=== PATIENT | male | born 1970 | race Caucasian/White ===

== ENCOUNTER 2018-01-07 10:01 | Outpatient (RCR) | payer OTHER, SELFPAY | END 2018-01-07 11:00 | disposition home or self-care (01) | LOC: SP 10:01 | PROVIDERS: Family Provider Family Medicine; PCP Family Medicine; Visit Provider Otolaryngology | DX: R13.11 Dysphagia, oral phase (principal); R47.1 Dysarthria and anarthria ==

== ENCOUNTER → 2018-01-15 12:58 | Outpatient (CLI) | payer OTHER, SELFPAY ==
--- NOTE | 2018-01-15 13:00 | SP.MBSS_ITS ---
PRIMARY / SECONDARY DIAGNOSIS: dysphagia (R13.11) REFERRING PHYSICIAN: Dr. Roni Sanchez MD CURRENT DIET: regular textures, thin liquids DENTITION: WFL MENTAL STATUS: WNL RESPIRATORY STATUS: O2 via room air PREVIOUS MODIFIED BARIUM SWALLOW STUDY: none REASON FOR REFERRAL: Patient is a 47 year old male referred for a modified barium swallow (MBS) study to objectively assess the Patients oropharyngeal swallow function under fluoroscopy secondary to the diagnosis of left lingual paralysis status post right rotator cuff surgery performed on 11/25/2017. Patient reporting persistent dysphagia primarily during the oral phase that progresses during intake, initial severity of dysphagia leading to the Patient requiring right sided bolus manipulation due to discoordination and occasional biting of the left lingual blade (initially occurring 6-8 times over 2 week period post op, though has improved), initially requiring a napkin to cover the mouth due to consistent anterior bolus loss (has recently improved), initial odynophagia somewhat improved, denies trismus, mild dysarthria occurring after approximately 20-30 minutes of conversation, with the Patient reporting tightness / cramping of the lingual structure, no impact on speech intelligibility. Patient reports a 20lb weight loss over the past month, intermittent shortness of breath and mild post anesthesia cognitive decline ( primarily consisting of bradyphrenia), reports new onset snoring / possible sleep apnea. Patient further presenting to [facility], was treated for suspected cerebrovascular accident and transferred to [facility], with subsequent workup negative; referred to sneller hand with report detailing left hypoglossal nerve paresis / neuropraxia occurring postoperatively during repair of a right rotator cuff with preoperative block. 12/09/2017 flexible fiberoptic laryngoscopy revealed mucosa intact with no sign of lesion, mass, or compression; edema of the posterior commissure mucosa present. MEDICAL HISTORY: Thoracic injury of the back, status post right rotator cuff surgical repair, deviated septum with nasal polyps, STUDY FINDINGS: Patient participated in a Modified Barium Swallow (MBS) study on 01/15/2018. Dr. Morales was the radiologist present for this evaluation. This study was recorded in the lateral view and images were sent to PACs for storage. The following consistencies were presented to this patient for analysis of oropharyngeal swallow function: thin liquids, pudding, and a regular textured, Terrie Doone cookie. Results of the MBS are as follows: PENETRATION / ASPIRATION SCALE ([place]): 1 = does not enter airway 2 = enters airway/above vocal folds/ejected 3 = enters airway/above vocal folds/not ejected 4 = enters airway/contacts vocal folds/ejected 5 = enters airway/contacts vocal folds/not ejected 6 = enters airway/below vocal folds/ejected 7 = enters airway/below vocal folds/not ejected despite effort 8 = enters airway/below vocal folds/no effort PENETRATION / ASPIRATION SCALE (SCORE): Thin liquids via cup (single sip): 1 Thin liquids via cup (single sip): 1 Thin liquids via cup (sequential swallows): 1 Thin liquids via cup (sequential swallows): 1 Thin liquids via straw (sequential swallows): 1 Pudding via spoon: 1 Regular textured cookie: 1 IMPRESSION: DIAGNOSIS: swallow function within functional limits. ORAL PHASE CHARACTERIZED BY: LABIAL SEAL: no labial escape TONGUE CONTROL DURING BOLUS MANIPULATION: cohesive bolus between tongue to palatal seal BOLUS PREPARATION / MASTICATION: timely and efficient chewing and mashing BOLUS TRANSPORT / LINGUAL MOTION: brisk tongue motion; occasional piecemeal deglutition not clinically significant. ORAL RESIDUE: occasional trace residue lining oral structures PHARYNGEAL PHASE CHARACTERIZED BY: INITIATION OF PHARYNGEAL SWALLOW: bolus head intermittently in valleculae at first hyoid excursion SOFT PALATE ELEVATION: no bolus between soft palate and pharyngeal wall LARYNGEAL ELEVATION: complete superior movement of thyroid cartilage with complete approximation of arytenoids cartilage to epiglottic petiole ANTERIOR HYOID EXCURSION: complete anterior movement EPIGLOTTIC MOVEMENT: complete epiglottic inversion LARYNGEAL VESTIBULE CLOSURE AT HEIGHT OF SWALLOW: complete laryngeal vestibule closure with no air/contrast in laryngeal vestibule PHARYNGEAL STRIPPING WAVE: pharyngeal stripping wave present / complete PHARYNGOESOPHAGEAL SEGMENT OPENING: complete distension and complete duration with no obstruction of flow TONGUE BASE RETRACTION: no contrast between tongue base and posterior pharyngeal wall PHARYNGEAL RESIDUE: complete pharyngeal clearance ESOPHAGEAL PHASE CHARACTERIZED BY: ESOPHAGEAL BOLUS CLEARANCE IN THE UPRIGHT POSITION: could not view DIET TEXTURE RECOMMENDATIONS: Will recommend a regular textured, thin liquid diet. INTERPRETATION OF RESULTS: The Patient presents with mastication and deglutition abilities found to be grossly within normal limits. No aspiration appreciated throughout consistencies trialed. RECOMMENDATIONS: Patient able to comprehend and express recommended intake precautions detailed above with sufficient detail to suggest high likelihood of compliance. Provided brief overview of signs and symptoms of aspiration, with recommendations for the Patient to further discuss symptoms with PCP. No further skilled speech- language services warranted at this time targeting dysphagia. ADDITIONAL COMMENTS/RECOMMENDATIONS: Results and recommendations were discussed with the Patient immediately following MBS completion, with the Patient verbalizing understanding and agreement with all recommendations and education provided. IMAGE COUNT: [id number] G-CODES: SWALLOWING [id number] Current Status: SWALLOWING G8997 Goal Status: SWALLOWING G8998 Discharge Status:
--- NOTE | 2018-01-15 13:22 | RAD_ITS ---
STUDY: SWALLOWING STUDY REASON FOR EXAM: Male, 47 years old. Dysphasia. TECHNIQUE: The examination was performed with Speech Pathology in attendance. Under fluoroscopic observation, the patient ingested thin barium, thick barium, barium pudding, and barium coated cracker. FLUOROSCOPY TIME: 1:30 minutes/seconds. 859 spot images were obtained. RADIOLOGIST INVOLVEMENT: Radiologist was present and providing direct supervision. COMPARISON: None. FINDINGS: The following was observed during swallowing of the various mixtures of barium: Thin Barium: There was no evidence of aspiration or laryngeal penetration. Barium Pudding: There was no evidence of aspiration or laryngeal penetration. Barium Coated Cracker: There was no evidence of aspiration or laryngeal penetration. RAD/Swallowing Function w/Video IMPRESSION: Normal tailored barium swallow study. No evidence of increased risk for aspiration. The swallow study findings were discussed with the patient by the speech pathologist at the conclusion of the examination. Please see speech pathology report for more information and recommendations. Electronically Signed: Amado Morales MD at 14:02 EDT Tel [phone], Service support ,
== END ==
PROVIDERS: Family Provider Family Medicine; PCP Family Medicine; Visit Provider Otolaryngology
DX: R13.10 Dysphagia, unspecified (principal)
CPT/HCPCS: 74230; 92611